=== PATIENT | male | born 1955 | race Caucasian/White ===

== ENCOUNTER 2022-09-03 13:11 | Outpatient (REF) | payer OTHER, SELFPAY ==
[2022-09-03 16:56] LABS: Alanine Aminotransferase 15 U/L (0-40); Alkaline Phosphatase 79 U/L (39-117); Anion Gap 11 (12-20); Aspartate Amino Transferase 17 U/L (5-37); Bilirubin Total 1.7 mg/dL (0.0-1.0); Blood Urea Nitrogen 8 mg/dL (9-16); Calcium 9.3 mg/dL (8.4-10.2); Carbon Dioxide 26 mmol/L (22-29); Chloride 106 mmol/L (96-108); Cholesterol 153 mg/dL; Estimated Glomerular Filt Rate > 60; Glucose Fasting 95 mg/dL (60-99); HDL Cholesterol 45 mg/dL; LDL Cholesterol Calculated 101 mg/dl; Potassium 3.9 mmol/L (3.3-5.1); Sodium 139 mmol/L (135-145); Total Protein 6.6 g/dL (6.5-8.0); Triglycerides 39 mg/dL
[2022-09-03 16:58] LABS: Estimated Average Glucose 103 mg/dL; Hemoglobin A1c % 5.2 %
[2022-09-03 17:17] LABS: Prostate Specific Antigen 1.91 ng/mL (<0.05-4.0)
[2022-09-04 05:02] LABS: ~HepC Num1 0.08 S/CO (0.00-0.79); ~Hepatitis C Antibody Nonreactive (Nonreactive)
[2022-09-04 05:03] LABS: HBS Num1 > 1000.00 mIU/mL (0-7.99); HBsAGNum1 0.33 S/CO (0.00-0.99); HIV AB/AG Nonreactive (Nonreactive); HIV Num 1 0.06 S/CO (0.00-0.99); Hepatitis B Core Antibody Nonreactive (Nonreactive); Hepatitis B Surface Antigen Negative (Negative); ~Hepatitis B Surface Antibody REACTIVE (Nonreactive)
[2022-09-04 12:07] LABS: Syphilis Screen Nonreactive (Nonreactive)
== END 2022-09-03 13:12 | disposition home or self-care (01) ==
LOC: HO.HHCL 13:11
PROVIDERS: Visit Provider Nurse Practitioner Primary Care
DX: Z00.00 Encounter for general adult medical examination without abnormal findings (principal); Z12.5 Encounter for screening for malignant neoplasm of prostate; Z11.4 Encounter for screening for human immunodeficiency virus [HIV]
CPT/HCPCS: 36415; 80053; 80061; 83036; 84153; 86704; 86706; 86780; 86803; 87340; 87389

== ENCOUNTER 2023-12-03 07:25 | Day surgery (SDC) | payer OTHER, SELFPAY ==
[2023-12-01 08:46] VITALS: BMI 26.9
--- NOTE | 2023-12-01 14:32 | HO.ANESPROP2 ---
Documented by User: Diane Kendall NP 12/01/23 14:32 HPI - Anesthesia Eval Consult details Narrative: 68yo M for Colonoscopy PMFSH Past Medical History Medical History Coma Substance abuse Seizures Surgical History Surgical History History of surgery H/O colonoscopy Social History Social History Patient Tobacco Use Status: Former Tobacco user Tobacco use type: Cigarette Use of substances other than those prescribed or required for medical reasons: No Substance Use Type: Crack/Cocaine, Former Substance User and Marijuana Are you DNR?: No Advance Directives: No Advance Directives Information Provided: Yes Recently lost weight without trying: No Nutrition Risks: No Nutritional Risk Poor oral hygiene: No Meds Allergies Allergy/AdvReac Type Severity Reaction Status Date / Time No Known Allergies Allergy Verified 12/01/23 08:44 Home Medications ?Medication ?Instructions ?Recorded ?Confirmed ?Last Taken ?Type levetiracetam 500 mg tablet 500 mg PO BID 12/01/23 12/01/23 Unknown History (Zenaida) thiamine HCl (vitamin B1) 12/03/23 12/03/23 Unknown History Exam Height,Weight and Vital Signs: Height 6 ft Weight 89.811 kg Assessment and Plan Assessment Anesthesia Assessment: Chart Reviewed Documented by User: Gladis Simon MD 12/03/23 08:45 PMFSH Past Medical History Medical History Coma Substance abuse Seizures Family History Family history of problems with anesthesia: No Surgical History Surgical History History of surgery H/O colonoscopy History of Problems with Anesthesia: No Social History Social History Patient Tobacco Use Status: Former Tobacco user Tobacco use type: Cigarette Use of substances other than those prescribed or required for medical reasons: No Substance Use Type: Crack/Cocaine, Former Substance User and Marijuana Are you DNR?: No Advance Directives: No Advance Directives Information Provided: Yes Recently lost weight without trying: No Nutrition Risks: No Nutritional Risk Poor oral hygiene: No Meds Allergies Allergy/AdvReac Type Severity Reaction Status Date / Time No Known Allergies Allergy Verified 12/01/23 08:44 Home Medications ?Medication ?Instructions ?Recorded ?Confirmed ?Last Taken ?Type levetiracetam 500 mg tablet 500 mg PO BID 12/01/23 12/01/23 Unknown History (Kemodesto) thiamine HCl (vitamin B1) 12/03/23 12/03/23 Unknown History Exam Airway Mallampati Class: II TM Dist: >3cm Neck ROM: Full Heart: rrr Lungs: cta Assessment and Plan Assessment Anesthesia Assessment: Anesthesia Plan Discussed Final Anesthetic Review Family History of Problems with Anesthesia: No History of Problems with Anesthesia: No NPO: Yes ASA Class: III Final Preanesthetic Review: No Changes in Pt Med Stat, Meds/Allgs Chart Reviewed, Consent Obtained/Reviewed and Anes Risks/Benef Reviewed Patient Risk: Intermediate Procedure Risk: Low Anesthetic Plan Anesthetic Plan: MAC: (complaining of some chest discomfort early am, none now, was non radiating left side, will get ekg) Disposition: Standard PACU
[2023-12-03 08:10] VITALS: BMI 26.8
--- NOTE | 2023-12-03 08:25 | ECG_ITS ---
Test Reason : chest wall pain Blood Pressure : / mmHG Vent. Rate : 062 BPM Atrial Rate : 062 BPM P-R Int : 176 ms QRS Dur : 084 ms QT Int : 376 ms P-R-T Axes : 072 027 062 degrees QTc Int : 381 ms Normal sinus rhythm with sinus arrhythmia Normal ECG No previous ECGs available Referred By: Gladis Simon Electronically Signed By:PATT ANDRES MD
[2023-12-03 08:29] VITALS: BP 112/72; PULSE 75; RESP 16; TEMP 36.8; O2SAT 95
--- NOTE | 2023-12-03 08:30 | PC.NURSE ---
ekg being performed
[2023-12-03] MEDS: Lactated Ringers 1,000 ML 100 ML IVCONT (08:37)
--- NOTE | 2023-12-03 08:52 | P.HPSUR_ITS ---
Pre-Procedural Eval Section A - 24 Hr Update-Section A only Date of Service: 12/03/23 Section B - Complete if H&P > 30 days Chief Complaint: Encounter for screening for malignant neoplasm of Details of Present Illness: see H&P no changes Relevant Family History (Specify if Yes): No Relevant Social History: None Present Medications: see Short Stay Collaborative assessment Medical History: No relevant PMH History of Previous Operations: No relevant previous surgery Allergies: Allergies Allergy/AdvReac Type Severity Reaction Status Date / Time No Known Allergies Allergy Verified 12/01/23 08:44 Review of Systems Sugical H&P ROS: Negative: Constitution, Cardiovascular, Respiratory, Neurological, Psychiatric, Hem-Onc, Allergic/Immunologic, Gastrointestinal, Genitourinary, Musculoskeletal, Integumentary, Endocrine and Eyes/Ears/No se/Throat Exam Surgical H&P Exam: Normal: HEENT, Normal: Heart, Normal: Lungs, Normal: Extremities, Normal: Abdomen, Normal: Skin and Normal: Neurological Plan Diagnosis/Plan: Unchanged I have reviewed the history and physical and performed a pertinent physical examination on my patient. No changes have occurred unless specified. Time Spent With Patient Time: Total time managing care of this patient today ____ minutes.
[2023-12-03 10:08] VITALS: BP 90/52; PULSE 69; RESP 16; TEMP 36.2; O2SAT 98
[2023-12-03 10:28] VITALS: BP 101/64; PULSE 60; RESP 17; TEMP 36.1; O2SAT 98
--- NOTE | 2023-12-03 11:07 | OP_ITS ---
DATE OF SERVICE: 12/03/2023 SURGEON: Cain Wise MD INDICATIONS: Colon cancer screening. PREOPERATIVE DIAGNOSIS: POSTOPERATIVE DIAGNOSIS: PROCEDURE PERFORMED: Colonoscopy to the terminal ileum with biopsy and snare polypectomy. ESTIMATED BLOOD LOSS: COMPLICATIONS: ANESTHESIA: MAC ASSISTANTS: SPECIMENS: DESCRIPTION OF PROCEDURE: A history and physical was performed. The risks and benefits of the procedure were explained to the patient, and informed consent was obtained. The patient was placed in the left lateral decubitus position. A digital rectal exam was performed and was found to be normal. The Olympus pediatric video colonoscope was introduced into the rectum and advanced to the cecum. The cecum was identified by transillumination, palpation, and identification of ileocecal valve. Examination was performed. The scope was removed. He tolerated the procedure well and was returned to the recovery area in stable condition. FINDINGS: The terminal ileum was examined and appeared normal. The visualized colonic mucosa was normal. Multiple polyps were present. All measuring less than 10 mm. The 1st at 90 cm was removed with a biopsy forceps. Three other polyps at 70, 60, and 40 cm were removed with a cold snare. There was mild sigmoid diverticulosis with scattered diverticula throughout the colon. Retroflexed examination showed moderate-sized internal hemorrhoids. IMPRESSION: Colon polyps. RECOMMENDATION: Follow up the biopsy results. MD AGUILA Santos/VERN / [id number] MTDD
== END 2023-12-03 10:59 | disposition home or self-care (01) ==
PROVIDERS: Visit Provider Internal Medicine Gastroenterology
PROC: 0DJD8ZZ Inspection of Lower Intestinal Tract, Via Natural or Artificial Opening Endoscopic (ICD-10-PCS; CPT 45378; principal; 2023-12-03 09:20)
DX: Z12.11 Encounter for screening for malignant neoplasm of colon (principal); D12.3 Benign neoplasm of transverse colon; D12.4 Benign neoplasm of descending colon; D12.5 Benign neoplasm of sigmoid colon; K57.30 Diverticulosis of large intestine without perforation or abscess without bleeding; K64.8 Other hemorrhoids; R07.89 Other chest pain; G40.909 Epilepsy, unspecified, not intractable, without status epilepticus; Z87.891 Personal history of nicotine dependence; Z79.899 Other long term (current) drug therapy
CPT/HCPCS: 45385; 45380; 88305; 93005; J2003; J2704

== ENCOUNTER → 2023-12-03 08:25 | Outpatient (BNV) | payer OTHER, SELFPAY | PROVIDERS: Visit Provider Internal Medicine Cardiovascular Disease | DX: R07.89 Other chest pain (principal) | CPT/HCPCS: 93010 ==

== ENCOUNTER 2024-03-23 15:10 | Outpatient (REF) | payer MEDICARE, SELFPAY ==
--- NOTE | ~2024-03-23 | US_ITS ---
CLINICAL HISTORY: enlarged LNs Limited soft tissue ultrasound in the submandibular region bilaterally Indication: Enlarged lymph nodes Comparison: None. Findings: A few small lymph nodes are present bilaterally. None of these meet size criteria for pathologic enlargement. On the right, there is a 2.3 x 0.4 x 1.6 cm lymph node. On the left there is a 1.6 x 0.6 x 1.1 cm and 1.4 x 0.5 x 0.6 cm lymph node. Impression: Small lymph nodes not meeting size criteria for pathologic enlargement. This document has been electronically signed by: Clinton Dowell MD on 03/24/2024 11:28:07
--- OUTSIDE RECORDS SUMMARY | 2024-03-23 18:58 | XMS_ITS | Continuity of Care Document ---
Author Name [facility] Organization [facility] Care Team Providers Care Shoe Ironer Name Role Phone [facility] Unavailable Unavailable Problems Combined list of problems from Department of Defense and Veterans Affairs facilities. It does not include entries that were removed or entered in error. 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 Condition [facility] Osteoarthritis of knee Active Condition [facility] Other and unspecified alcohol dependence, continuous drinking behavior (ICD-9-CM Active Condition [facility] 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 Condition [facility] Posttraumatic seizure Active Condition [facility] Traumatic rupture of biceps tendon Active Condition Dec 05, 2013 Entered By: Akiko HODGES MY P Comment: partial tear right [facility] 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 Condition [facility] Diagnosis: ICD-10-CM R56.1 Post traumatic seizures Active Diagnosis [facility] Diagnosis: ICD-10-CM Z46.0 Encounter for fit/adjst of spectacles and contact lenses Active Diagnosis [facility] Diagnosis: ICD-10-CM H40.013 Open angle with borderline findings, low risk, bilateral Active Diagnosis [facility] Medications Combined list of outpatient medications from Department of Defense and Veterans Affairs facilities.Medications provided include 1) outpatient medications from the last 15 months, and 2) patient-reported medications. Medication Details Route Status Patient Instructions Prescription Expires Prescription Number Last Dispense Date Ordering Provider Order Date Order Qty Source LEVETIRACET AM 500MG TAB TAKE ONE TABLET BY MOUTH ONCE DAILY FOR TONIC-CL ONIC EPILEPSY ORAL ACTIVE 10/28/2024 [id number] SANDRINEMARITZA GONZALEZ 2023 120 [facility] [place] [facility] LEVETIRACET AM 500MG TAB TAKE TWO TABLETS BY MOUTH ONCE DAILY ORAL 07/08/2023 [id number] SOLE AYALA 2022 240 [facility] [place] [facility] THIAMINE 100MG TAB TAKE ONE TABLET BY MOUTH ONCE DAILY FOR VITAMIN SUPPLEME NTATION ORAL ACTIVE 10/28/2024 [id number] LAURAMARITZA Fleming 2023 100 [facility] [place] [facility] THIAMINE 50MG TAB TAKE ONE TABLET BY MOUTH ONCE DAILY ORAL ACTIVE MILTONDIAMONDMARITZA WHITTEN 2021 [facility] Immunizations Combined list of available immunizations from the Department of Defense and Veterans Affairs facilities. Immunization Series Date Given Administered By Site Reaction Lot Number CVX Code Drug Labor Training Manager Status Comments Source INFLUENZA, UNSPECIFIED FORMULATION 2023 88 complet ed [facility] [place] [facility] INFLUENZA, UNSPECIFIED FORMULATION 2022 88 complet ed [facility] [place] [facility] PNEUMOCOCCAL CONJUGATE PCV20, POLYSACCHARID E [id number] CONJUGATE, ADJUVANT, PF 2022 JEAN-PIERRE MORAN RIGHT DELTO ID [id number] 216 complet ed [facility] [place] [facility] COVID-19 (MODERNA), MRNA, LNP-S, BIVALENT BOOSTER, PF, 50 MCG/0.5 ML OR 25MCG/0.25 ML DOSE 1 2022 KOKO SHEPHERD LEFT DELTO ID [id number] 229 complet ed [facility] INFLUENZA, INJECTABLE, QUADRIVALENT, PRESERVATIVE FREE 2021 DAVI SUTHERLAND RIGHT DELTO ID [id number] 150 complet ed [facility] COVID-19 (PFIZER), MRNA, LNP-S, PF, 30 MCG/0.3 ML DOSE 3 2021 208 complet ed [facility] COVID-19 (PFIZER), MRNA, LNP-S, PF, 30 MCG/0.3 ML DOSE 3 2021 208 complet ed [facility] INFLUENZA, INJECTABLE, QUADRIVALENT, PRESERVATIVE FREE 2020 150 complet ed [facility] TD (ADULT), 5 LF TETANUS TOXOID, PRESERVATIVE FREE, ADSORBED 2020 113 complet ed [facility] COVID-19 (PFIZER), MRNA, LNP-S, PF, 30 MCG/0.3 ML DOSE 2 2020 208 complet ed PFR; [id number]; 1 [facility] COVID-19 (PFIZER), MRNA, LNP-S, PF, 30 MCG/0.3 ML DOSE 1 2020 208 complet ed PFR; [id number]; 1 [facility] INFLUENZA, INJECTABLE, QUADRIVALENT, PRESERVATIVE FREE 2019 150 complet ed Site: Left Deltoid [facility] ZOSTER RECOMBINANT 2 2019 187 complet ed [facility] INFLUENZA, INJECTABLE, QUADRIVALENT, PRESERVATIVE FREE 2018 150 complet ed Site: Left Deltoid [facility] ZOSTER RECOMBINANT 1 2018 187 complet ed [facility] HEP A-HEP B 1 2018 NONE 104 complet ed tolerated well [facility] INFLUENZA, SEASONAL, INJECTABLE 2017 141 complet ed Site: Left Deltoid [facility] INFLUENZA, SEASONAL, INJECTABLE 2016 141 complet ed Site: Left Deltoid [facility] DTAP, UNSPECIFIED FORMULATION 2011 107 complet ed Site: Left Deltoid [facility] PNEUMOCOCCAL, UNSPECIFIED FORMULATION 2011 109 complet ed Site: Right Deltoid [facility] TD(ADULT) UNSPECIFIED FORMULATION 2006 JASSI BETTENCOURT J 139 complet ed [facility] TD(ADULT) UNSPECIFIED FORMULATION 2000 JOHN ROSENBAUM P 139 complet ed [facility] Results Combined list of recent chemistry, hematology and other laboratory results from Department of Defense and Veterans Affairs, ranging from 15 months to all on record, depending upon the facility. Order Name Results Value Reference Range Date Interpretation Specimen Comments Source BASIC METABOLIC PANEL (fasting) UREA NITROGEN [MASS/VOLUM E] IN SERUM OR PLASMA 12 mg/dL 7 - 25 03/15 Specimen Type: SERUM No comment entered. Ordering Provider: Santana SANCHEZ Report Released Date/Time: Mar 12, 2023 04:00 PM Reporting Lab: [facility] [place] [facility] [address] [facility] [address] Performing Lab: [facility] [place] [facility] [address] [facility] [address] [place] [facility] [place] [facility] BASIC METABOLIC PANEL (fasting) GLUCOSE [MASS/VOLUM E] IN SERUM OR PLASMA 108 mg/dL 65 - 100 03/15 H Specimen Type: SERUM No comment entered. Ordering Provider: Santana SANCHEZ Report Released Date/Time: Mar 12, 2023 04:00 PM Reporting Lab: [facility] [place] [facility] [address] [facility] [address] Performing Lab: [facility] [place] [facility] [address] [facility] [address] [facility] BASIC METABOLIC PANEL (fasting) SODIUM [MOLES/VOLU ME] IN SERUM OR PLASMA 138 mmol/L 135 - 145 03/15 Specimen Type: SERUM No comment entered. Ordering Provider: Santana SANCHEZ Report Released Date/Time: Mar 12, 2023 04:00 PM Reporting Lab: [facility] [place] [facility] [address] [facility] [address] Performing Lab: [facility] [place] [facility] [address] [facility] [address] [facility] [place] [facility] BASIC METABOLIC PANEL (fasting) POTASSIUM [MOLES/VOLU ME] IN SERUM OR PLASMA 4.9 mmol/L 3.5 - 5.0 03/15 Specimen Type: SERUM No comment entered. Ordering Provider: Santana SANCHEZ Report Released Date/Time: Mar 12, 2023 04:00 PM Reporting Lab: [facility] [place] [address] [address] Performing Lab: [facility] [place] [address] [address] [facility] [place] [facility] BASIC METABOLIC PANEL (fasting) CHLORIDE [MOLES/VOLU ME] IN SERUM OR PLASMA 104 mmol/L 100 - 110 03/15 Specimen Type: SERUM No comment entered. Ordering Provider: Santana SANCHEZ Report Released Date/Time: Mar 12, 2023 04:00 PM Reporting Lab: [facility] [place] [facility] [address] [facility] [address] Performing Lab: [facility] [place] [address] [address] [facility] [place] [facility] BASIC METABOLIC PANEL (fasting) CARBON DIOXIDE, TOTAL [MOLES/VOLU ME] IN SERUM OR PLASMA 27 meq/L 20 - 30 03/15 Specimen Type: SERUM No comment entered. Ordering Provider: Santana SANCHEZ Report Released Date/Time: Mar 12, 2023 04:00 PM Reporting Lab: [facility] [address] [facility] [address] Performing Lab: [facility] [address] [address] [facility] BASIC METABOLIC PANEL (fasting) CREATININE [MASS/VOLUM E] IN SERUM OR PLASMA 0.90 mg/dL 0.50 - 1.40 03/15 Specimen Type: SERUM No comment entered. Ordering Provider: Santana SANCHEZ Report Released Date/Time: Mar 12, 2023 04:00 PM Reporting Lab: [facility] [address] [address] Performing Lab: [facility] [address] [address] [facility] BASIC METABOLIC PANEL (fasting) GLOMERULAR FILTRATION RATE/1.73 SQ M.PREDICTED [VOLUME RATE/AREA] IN SERUM, PLASMA OR BLOOD BY CREATININE- BASED FORMULA (CKD-EPI 2020) >90mL/ min 60 03/15 Specimen Type: SERUM No comment entered. Ordering Provider: Santana SANCHEZ Report Released Date/Time: Mar 12, 2023 04:00 PM Reporting Lab: [facility] [address] [address] Performing Lab: [facility] [address] [address] [facility] HEMOGLOBI N A1C PANEL HEMOGLOBIN A1C/HEMOGLO BIN.TOTAL IN BLOOD BY HPLC 5.3 4.0 - 5.6 03/15 Specimen Type: BLOOD Comment: Values obtained from A1C measurement s can vary. For atypical A1C assays, a reported value of 7.0 could actually be between 6.72 and 7.28 if measured by a reference method. A reported value of 9.0 could actually be between 8.73 and 9.27. Ref: http://www. ngsp.org/[place] Pdata.asp Ordering Provider: Santana SANCHEZ Report Released Date/Time: Mar 12, 2023 04:00 PM Reporting Lab: [facility] [address] [facility] [address] Performing Lab: [facility] [place] [facility] [address] [facility] [address] [facility] [place] [facility] LIPID PANEL FASTING CHOLESTEROL [MASS/VOLUM E] IN SERUM OR PLASMA 161 mg/dL 03/15 Specimen Type: SERUM No comment entered. Ordering Provider: Santana SANCHEZ Report Released Date/Time: Mar 12, 2023 04:00 PM Reporting Lab: [facility] [place] [facility] [address] [facility] [address] Performing Lab: [facility] [place] [facility] [address] [facility] [address] [facility] [place] [facility] LIPID PANEL FASTING TRIGLYCERID E [MASS/VOLUM E] IN SERUM OR PLASMA 48 mg/dL 0 - 150 03/15 Specimen Type: SERUM No comment entered. Ordering Provider: Santana SANCHEZ Report Released Date/Time: Mar 12, 2023 04:00 PM Reporting Lab: [facility] [place] [facility] [address] [facility] [address] Performing Lab: [facility] [place] [facility] [address] [facility] [address] [facility] LIPID PANEL FASTING CHOLESTEROL IN LDL [MASS/VOLUM E] IN SERUM OR PLASMA BY CALCULATION 99 mg/dL 0 - 129 03/15 Specimen Type: SERUM No comment entered. Ordering Provider: Santana SANCHEZ Report Released Date/Time: Mar 12, 2023 04:00 PM Reporting Lab: [facility] [place] [facility] [address] [facility] [address] Performing Lab: [facility] [place] [facility] [address] [facility] [address] [facility] [place] [facility] LIPID PANEL FASTING CHOLESTEROL .TOTAL/CHOL ESTEROL IN HDL [MASS RATIO] IN SERUM OR PLASMA 3.1 03/15 Specimen Type: SERUM No comment entered. Ordering Provider: Santana SANCHEZ Report Released Date/Time: Mar 12, 2023 04:00 PM Reporting Lab: [facility] [place] [facility] [address] [facility] [address] Performing Lab: [facility] [place] [facility] [address] [facility] [address] [facility] [facility] LIPID PANEL FASTING CHOLESTEROL IN HDL [MASS/VOLUM E] IN SERUM OR PLASMA 52 mg/dL 40 - 60 03/15 Specimen Type: SERUM No comment entered. Ordering Provider: Santana SANCHEZ Report Released Date/Time: Mar 12, 2023 04:00 PM Reporting Lab: [facility] [place] [facility] [address] [facility] [address] Performing Lab: [facility] [place] [facility] [address] [facility] [address] [place] [facility] [place] [facility] LIVER FUNCTION PROTEIN [MASS/VOLUM E] IN SERUM OR PLASMA 7.0 g/dL 6.0 - 8.3 03/15 Specimen Type: SERUM No comment entered. Ordering Provider: Santana SANCHEZ Report Released Date/Time: Mar 12, 2023 04:00 PM Reporting Lab: [facility] [place] [facility] [address] [facility] [address] Performing Lab: [facility] [place] [facility] [address] [facility] [address] [place] [facility] [place] [facility] LIVER FUNCTION ALBUMIN [MASS/VOLUM E] IN SERUM OR PLASMA 4.1 g/dL 3.5 - 5.0 03/15 Specimen Type: SERUM No comment entered. Ordering Provider: Santana SANCHEZ Report Released Date/Time: Mar 12, 2023 04:00 PM Reporting Lab: [facility] [place] [facility] [address] [facility] [address] Performing Lab: [facility] [place] [facility] [address] [facility] [address] [facility] [place] [facility] LIVER FUNCTION ALKALINE PHOSPHATASE [ENZYMATIC ACTIVITY/VO LUME] IN SERUM OR PLASMA 93 U/L 40 - 150 03/15 Specimen Type: SERUM No comment entered. Ordering Provider: Santana SANCHEZ Report Released Date/Time: Mar 12, 2023 04:00 PM Reporting Lab: [facility] [place] [facility] [address] [facility] [address] Performing Lab: [facility] [place] [facility] [address] [facility] [address] [facility] [place] [facility] LIVER FUNCTION ASPARTATE AMINOTRANSF ERASE [ENZYMATIC ACTIVITY/VO LUME] IN SERUM OR PLASMA 14 U/L 5 - 34 03/15 Specimen Type: SERUM No comment entered. Ordering Provider: Santana SANCHEZ Report Released Date/Time: Mar 12, 2023 04:00 PM Reporting Lab: [facility] [place] [facility] [address] [facility] [address] Performing Lab: [facility] [place] [facility] [address] [facility] [address] [facility] [place] [facility] LIVER FUNCTION ALANINE AMINOTRANSF ERASE [ENZYMATIC ACTIVITY/VO LUME] IN SERUM OR PLASMA 13 U/L 03/15 Specimen Type: SERUM No comment entered. Ordering Provider: Santana SANCHEZ Report Released Date/Time: Mar 12, 2023 04:00 PM Reporting Lab: [facility] [place] [address] [address] Performing Lab: [facility] [place] [facility] [address] [facility] [address] [facility] [place] [facility] LIVER FUNCTION BILIRUBIN.T OTAL [MASS/VOLUM E] IN SERUM OR PLASMA 1.4 mg/dL 0.2 - 1.2 03/15 H Specimen Type: SERUM No comment entered. Ordering Provider: Santana SANCHEZ Report Released Date/Time: Mar 12, 2023 04:00 PM Reporting Lab: [facility] [place] [address] [address] Performing Lab: [facility] [place] [address] [address] [facility] LIVER FUNCTION BILIRUBIN.D IRECT [MASS/VOLUM E] IN SERUM OR PLASMA 0.5 mg/dL 0 - 0.5 03/15 Specimen Type: SERUM No comment entered. Ordering Provider: Santana SANCHEZ Report Released Date/Time: Mar 12, 2023 04:00 PM Reporting Lab: [address] [address] Performing Lab: [facility] [address] [facility] [address] [facility] VITAMIN B-1 (THIAMINE )-(QU) THIAMINE [MOLES/VOLU ME] IN SERUM OR PLASMA 9 nmol/L 8 - 30 03/15 Specimen Type: PLASMA Comment: Vitamin supplementa tion within 24 hours prior to blood draw may affect the accuracy of the results. This test was developed and its analytical performance characteris tics have been determined by [employer] [place], [place]. It has not been cleared or approved by the U.S. Food and Drug Administrat ion. This assay has been validated pursuant to the CLIA regulations and is used for clinical purposes. Test Performed by [facility], [facility], [address] [place] [address] Danny Waggoner M.D., Ph.D., Director of Laboratorie s , CLIA [id number] TEST PERFORMED AT: , Ordering Provider: Santana SANCHEZ Report Released Date/Time: Mar 12, 2023 04:00 PM Reporting Lab: [address] [address] Performing Lab: [place] [id number] BASIC METABOLIC PANEL (fasting) UREA NITROGEN [MASS/VOLUM E] IN SERUM OR PLASMA 13 mg/dL 7 - 25 09/18 Specimen Type: SERUM No comment entered. Ordering Provider: VANWAGNER,W ILLIAM F Report Released Date/Time: Mar 20, 2022 02:25 PM Reporting Lab: [facility] [place] [facility] [address] [facility] [address] Performing Lab: [facility] [place] [facility] [address] [facility] [address] [facility] [place] [facility] BASIC METABOLIC PANEL (fasting) GLUCOSE [MASS/VOLUM E] IN SERUM OR PLASMA 140 mg/dL 65 - 100 09/18 H Specimen Type: SERUM No comment entered. Ordering Provider: Santana SANCHEZ Report Released Date/Time: Mar 20, 2022 02:25 PM Reporting Lab: [facility] [place] [facility] [address] [facility] [address] Performing Lab: [place] [facility] [place] [place] [facility] [address] [facility] [address] [place] [facility] [place] [facility] BASIC METABOLIC PANEL (fasting) SODIUM [MOLES/VOLU ME] IN SERUM OR PLASMA 136 mmol/L 135 - 145 09/18 Specimen Type: SERUM No comment entered. Ordering Provider: Santana SANCHEZ Report Released Date/Time: Mar 20, 2022 02:25 PM Reporting Lab: [facility] [place] [facility] [address] [facility] [address] Performing Lab: [facility] [place] [facility] [address] [facility] [address] [place] [facility] [place] [place] [facility] BASIC METABOLIC PANEL (fasting) POTASSIUM [MOLES/VOLU ME] IN SERUM OR PLASMA 4.2 mmol/L 3.5 - 5.0 09/18 Specimen Type: SERUM No comment entered. Ordering Provider: Santana SANCHEZ Report Released Date/Time: Mar 20, 2022 02:25 PM Reporting Lab: [facility] [place] [facility] [address] [facility] [address] Performing Lab: [facility] [place] [facility] [address] [facility] [address] [facility] [place] [facility] BASIC METABOLIC PANEL (fasting) CHLORIDE [MOLES/VOLU ME] IN SERUM OR PLASMA 102 mmol/L 100 - 110 09/18 Specimen Type: SERUM No comment entered. Ordering Provider: Santana SANCHEZ Report Released Date/Time: Mar 20, 2022 02:25 PM Reporting Lab: [facility] [address] Performing Lab: [facility] [address] [facility] BASIC METABOLIC PANEL (fasting) CARBON DIOXIDE, TOTAL [MOLES/VOLU ME] IN SERUM OR PLASMA 26 meq/L 20 - 30 09/18 Specimen Type: SERUM No comment entered. Ordering Provider: Santana SANCHEZ Report Released Date/Time: Mar 20, 2022 02:25 PM Reporting Lab: [facility] [address] [address] Performing Lab: [facility] [address] [address] [facility] BASIC METABOLIC PANEL (fasting) CREATININE [MASS/VOLUM E] IN SERUM OR PLASMA 0.86 mg/dL 0.50 - 1.40 09/18 Specimen Type: SERUM No comment entered. Ordering Provider: Santana SANCHEZ Report Released Date/Time: Mar 20, 2022 02:25 PM Reporting Lab: [facility] [address] Performing Lab: [facility] [address] [facility] BASIC METABOLIC PANEL (fasting) GLOMERULAR FILTRATION RATE/1.73 SQ M.PREDICTED [VOLUME RATE/AREA] IN SERUM, PLASMA OR BLOOD BY CREATININE- BASED FORMULA (CKD-EPI) >90mL/ min 60 09/18 Specimen Type: SERUM No comment entered. Ordering Provider: Santana SANCHEZ Report Released Date/Time: Mar 20, 2022 02:25 PM Reporting Lab: [facility] [place] [place] [address] Performing Lab: [place] [facility] [place] [facility] [address] [facility] [address] [facility] [place] [facility] LIPID PANEL FASTING CHOLESTEROL [MASS/VOLUM E] IN SERUM OR PLASMA 130 mg/dL 09/18 Specimen Type: SERUM No comment entered. Ordering Provider: Santana SANCHEZ Report Released Date/Time: Mar 20, 2022 02:25 PM Reporting Lab: [facility] [place] [facility] [address] [facility] [address] Performing Lab: [place] [facility] [place] [facility] [address] [facility] [address] [place] [facility] [place] [facility] LIPID PANEL FASTING TRIGLYCERID E [MASS/VOLUM E] IN SERUM OR PLASMA 54 mg/dL 0 - 150 09/18 Specimen Type: SERUM No comment entered. Ordering Provider: Santana SANCHEZ Report Released Date/Time: Mar 20, 2022 02:25 PM Reporting Lab: [facility] [place] [facility] [address] [facility] [address] Performing Lab: [facility] [place] [facility] [address] [facility] [phone] [facility] [place] [facility] LIPID PANEL FASTING CHOLESTEROL IN LDL [MASS/VOLUM E] IN SERUM OR PLASMA BY CALCULATION 80 mg/dL 0 - 129 09/18 Specimen Type: SERUM No comment entered. Ordering Provider: Santana SANCHEZ Report Released Date/Time: Mar 20, 2022 02:25 PM Reporting Lab: [facility] [place] [facility] [address] [facility] [address] Performing Lab: [facility] [place] [facility] [address] [facility] [address] [place] [facility] [place] [facility] LIPID PANEL FASTING CHOLESTEROL .TOTAL/CHOL ESTEROL IN HDL [MASS RATIO] IN SERUM OR PLASMA 3.3 09/18 Specimen Type: SERUM No comment entered. Ordering Provider: Santana SANCHEZ Report Released Date/Time: Mar 20, 2022 02:25 PM Reporting Lab: [facility] [place] [facility] [address] [facility] [address] Performing Lab: [facility] [place] [facility] [address] [facility] [address] [facility] [place] [facility] LIPID PANEL FASTING CHOLESTEROL IN HDL [MASS/VOLUM E] IN SERUM OR PLASMA 39 mg/dL 40 - 60 09/18 L Specimen Type: SERUM No comment entered. Ordering Provider: Santana SANCHEZ Report Released Date/Time: Mar 20, 2022 02:25 PM Reporting Lab: [facility] [place] [facility] [address] [facility] [address] Performing Lab: [facility] [place] [facility] [address] [facility] [address] [facility] [place] [facility] LIVER FUNCTION PROTEIN [MASS/VOLUM E] IN SERUM OR PLASMA 6.6 g/dL 6.0 - 8.3 09/18 Specimen Type: SERUM No comment entered. Ordering Provider: Santana SANCHEZ Report Released Date/Time: Mar 20, 2022 02:25 PM Reporting Lab: [facility] [place] [facility] [address] [facility] [address] Performing Lab: [facility] [place] [facility] [address] [facility] [address] [facility] [place] [facility] LIVER FUNCTION ALBUMIN [MASS/VOLUM E] IN SERUM OR PLASMA 3.9 g/dL 3.5 - 5.0 09/18 Specimen Type: SERUM No comment entered. Ordering Provider: Santana SANCHEZ Report Released Date/Time: Mar 20, 2022 02:25 PM Reporting Lab: [facility] [place] [facility] [address] [facility] [address] Performing Lab: [facility] [place] [facility] [address] [facility] [address] [facility] [place] [facility] LIVER FUNCTION ALKALINE PHOSPHATASE [ENZYMATIC ACTIVITY/VO LUME] IN SERUM OR PLASMA 80 U/L 40 - 150 09/18 Specimen Type: SERUM No comment entered. Ordering Provider: Santana SANCHEZ Report Released Date/Time: Mar 20, 2022 02:25 PM Reporting Lab: [facility] [place] [facility] [address] [facility] [address] Performing Lab: [facility] [place] [facility] [address] [facility] [address] [facility] [place] [facility] LIVER FUNCTION ASPARTATE AMINOTRANSF ERASE [ENZYMATIC ACTIVITY/VO LUME] IN SERUM OR PLASMA 11 U/L 5 - 34 09/18 Specimen Type: SERUM No comment entered. Ordering Provider: Santana SANCHEZ Report Released Date/Time: Mar 20, 2022 02:25 PM Reporting Lab: [facility] [place] [facility] [address] [facility] [address] Performing Lab: [facility] [place] [facility] [address] [facility] [address] [facility] [place] [facility] LIVER FUNCTION ALANINE AMINOTRANSF ERASE [ENZYMATIC ACTIVITY/VO LUME] IN SERUM OR PLASMA 10 U/L 09/18 Specimen Type: SERUM No comment entered. Ordering Provider: Santana SANCHEZ Report Released Date/Time: Mar 20, 2022 02:25 PM Reporting Lab: [facility] [place] [facility] [address] [facility] [address] Performing Lab: [facility] [place] [facility] [address] [facility] [address] [facility] [place] [facility] LIVER FUNCTION BILIRUBIN.T OTAL [MASS/VOLUM E] IN SERUM OR PLASMA 1.0 mg/dL 0.2 - 1.2 09/18 Specimen Type: SERUM No comment entered. Ordering Provider: Santana SANCHEZ Report Released Date/Time: Mar 20, 2022 02:25 PM Reporting Lab: [facility] [place] [facility] [address] [facility] [address] Performing Lab: [facility] [place] [facility] [address] [facility] [address] [facility] [place] [facility] VITAMIN B-1 (THIAMINE )-(QU) THIAMINE [MOLES/VOLU ME] IN SERUM OR PLASMA 7 nmol/L 8 - 30 09/18 L Specimen Type: PLASMA Comment: Vitamin supplementa tion within 24 hours prior to blood draw may affect the accuracy of the results. This test was developed and its analytical performance characteris tics have been determined by [employer] [place], [place]. It has not been cleared or approved by the U.S. Food and Drug Administrat ion. This assay has been validated pursuant to the CLIA regulations and is used for clinical purposes. Test Performed by [facility], [employer] [facility], [address] [address] [facility], [place], [place] Danny Waggoner M.D., Ph.D., Director of Laboratorie s , CLIA [id number] TEST PERFORMED AT: , Ordering Provider: Santana SANCHEZ Report Released Date/Time: Sep 18, 2022 01:44 PM Reporting Lab: [facility] [address] [facility] [address] Performing Lab: [facility] [address] [address] [facility] Vital Signs Combined list of inpatient and outpatient Vital Signs from Department of Defense and Veterans Affairs, ranging from 12 months to all on record, depending upon the facility. Vital Sign Value Date Comments Source SYSTOLIC BLOOD PRESSURE 122 10/28/19 24 10:52:38 [facility] DIASTOLIC BLOOD PRESSURE 72 024 10:52:38 [facility] PULSE OXIMETRY 96 10/28/2023 10:52:38 [place] [facility] [facility] WEIGHT 202 10/28/2023 10:52:38 [facility] BMI 28kg/m2 10/28/2023 10:52:38 [facility] [place] [facility] PAIN 0 10/28/2023 10:52:38 [facility] [place] [facility] TEMPERATURE 97.7 10/28/2023 10:52:38 [facility] [place] [facility] PULSE 48 10/28/2023 10:52:38 [facility] [place] [facility] RESPIRATION 16 10/28/2023 10:52:38 [facility] [place] [facility] SYSTOLIC BLOOD PRESSURE 118 04/30/19 24 11:22:11 [facility] [place] [facility] DIASTOLIC BLOOD PRESSURE 64 024 11:22:11 [facility] [place] [facility] PULSE OXIMETRY 97 04/30/2023 11:22:11 [facility] [place] [facility] WEIGHT 195 04/30/2023 11:22:11 [facility] [place] [facility] BMI 27kg/m2 04/30/2023 11:22:11 [facility] [place] [facility] PAIN 0 04/30/2023 11:22:11 [facility] [place] [facility] TEMPERATURE 97.1 04/30/2023 11:22:11 [facility] [place] [facility] PULSE 48 04/30/2023 11:22:11 [facility] [place] [facility] RESPIRATION 18 04/30/2023 11:22:11 [facility] [place] [facility] Encounters Combined list of: 1) Encounters from Department of Veterans Affairs facilities going back up to thelast 18 months. 2) Encounters from the Department of Defense facilities going back up to 280 months. Location Location Details Encounter Type Encounter Number Reason For Visit Attending Provider ADM Date DC Date Status Disposition Source [facility] Encounter [id number] 12/30 [facility] [place] [facility] EYE EXAM&TX ESTAB PT 1/>VST [id number] Diagnos is: ICD-10- CM H40.013 Open angle with borderl ine finding s, low risk, bilater al
JIMBO STEEL 02/03 [facility] [place] FIT SPECTACLES BIFOCAL [id number] Diagnos is: ICD-10- CM Z46.0 Encount er for fit/adj st of spectac les and contact lenses< br/> JIMBO STEEL E 02/04 [facility] Out[facility] Encounter [id number] 03/06 [facility] [place] En[facility] [id number] 03/09 [facility] [place] Encounter [id number] 03/16 [facility] Encounter [id number] 03/18 [facility] En[facility] [id number] 03/18 [facility] En[facility] [id number] 03/25 [facility] [place] RPR&REFITG SPECT XCP APHAKIA [id number] Diagnos is: ICD-10- CM Z46.0 Encount er for fit/adj st of spectac les and contact lenses< br/> ASHA DOSHI 04/02 [facility] Out[facility] En[facility] [id number] 04/29 [facility] OFFICE O/P EST LOW 20 MIN [id number] Diagnos is: ICD-10- CM R56.1 Post traumat ic seizure s
MARITZA SANCHEZ 04/29 [facility] En[facility] [id number] 10/19 [facility] Encounter [id number] 10/27 [facility] OFFICE O/P EST LOW 20 MIN [id number] Diagnos is: ICD-10- CM R56.1 Post traumat ic seizure s
MARITZA SANCHEZ 10/27 [facility] En[facility] [id number] 12/02 [facility] En[facility] [id number] 12/28 [facility] En[facility] [id number] 01/16 [facility] Encounter [id number] 01/16 [facility] En[facility] [id number] 02/02 [facility] Encounter [id number] 03/01 [facility] Social History Combined list of available smoking, tobacco, and other social history from Department of Defense and Veterans Affairs facilities. Social History Type Response Date Comment Source Tobacco smoking status [facility] NEVER USED 04/30/2023 [facility] [place] [facility] 01/08/2022 [facility] [place] [facility] History of tobacco use [place]-TOBAC[facility] NEVER USED 12/13/2020 [facility] [place] [facility] History of tobacco use [place]-TOBACCO NEVER USED 08/16/2018 [facility] [place] [facility] 11[facility]22/2017 [facility] [place] [facility] History of tobacco use QUIT TOBACCO USE > 7 YEARS AGO 12/02/2016 [facility] [place] [facility] History of tobacco use QUIT TOBACCO USE 1-7 YEARS AGO 04/16/2016 [facility] [place] [facility] History of tobacco use QUIT TOBACCO USE > 7 YEARS AGO 02/12/2015 smoked pipe and cigar quit in 1976 [facility] [place] [facility] History of tobacco use LIFETIME NON-SMOKER 07/31/2003 [facility] [place] [facility] History of tobacco use LIFETIME NON-TOBACCO USER 12/22/2001 [facility] Plan of Care List of future care activities from Department of Veterans Affairs facilities. Additional future care activities may be listed in the Assessment and Plan section. Date/Time Care Activity Care Activity Detail Facili ty 04/25/2024 AMBULATORY - MEDICINE AMBULATORY - [facility] 04/26/2024 Laboratory - Writing Tutor ry Order VITAMIN B-1 (THIAMINE)-(QU) BLOOD (LAV-PLASMA) [facility] 04/26/2024 Laboratory - Writing Tutor ry Order LIVER FUNCTION BLOOD (SST-SERUM) SP [facility] 04/26/2024 Laboratory - Writing Tutor ry Order BASIC METABOLIC PANEL (fasting) BLOOD (SST-SERUM) SP [facility] 04/26/2024 Laboratory - Writing Tutor ry Order LIPID PANEL FASTING BLOOD (SST-SERUM) SP [facility]
--- OUTSIDE RECORDS SUMMARY | 2024-03-23 18:58 | XMS_ITS | Clinical Summary ---
Author Organization [employer] Address [address] [place] [address] [address] [place] [address] Care Team Providers Care Capacitor Inspector Name Role Phone Julieta De León Primary Care Provider [phone] Allergies No known active allergies Medications levETIRAcetam (Keppra) 500 MG tablet Take 2 tablets by mouth Once daily. 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 Chronic back pain 08/28/2022 Overview (08/28/2022): s/p fall from 14ft years ago Dental plaque 07/01/2022 Generalized gingival recession 07/01/2022 Dental caries 07/01/2022 Encounters Date Type Department Care Team Description 03/03/2024 Telephone [facility] [address] [place] [phone] Misty Kc [place] April recall 01/18/2024 9:45 AM EST Office Visit [facility] [address] [place] [phone] Julieta De León ANP Seizure disorder (CMS/HCC) (Primary Dx); Former smoker, stopped smoking in distant past; Screening for malignant neoplasm of colon; Encounter for immunization; Lipid screening; Elevated fasting glucose; Healthcare maintenance; Cervical adenopathy 01/18/2024 Travel 01/06/2024 Patient Outreach [facility] [address] [place] [address] Julieta De León ANP Pre-visit Planning (Pre-visit planning - LVM ) from Last 3 Months Immunizations Name Administration Dates Next Due DTaP, Unspecified 06/08/2011 Hep A / Hep B 08/16/2018 Influenza High-dose Quadriva lent Preservative Free 01/18/2023 Influenza injectable quadriv alent preservative free 02/09/2022,12/13/2020,11/02/2019,2018 Influenza, High Dose Seasona l, Preservative Free 01/18/2024 Influenza, IIV3, injectable 11/22/2017, 7 Influenza, Unspecified 12/30/2022 Influenza, seasonal, injecta ble, preservative free 11/22/2017,12/02/2016 Moderna Covid-19 Vaccine 6+ Bivalent 03/13/2022 Pfizer Covid-19 Vaccine 12+ 01/18/2024,0 08/30/2021,03/26/2021,2020,04/30/2020 Pfizer Covid-19 Vaccine 12+ cesia-sucrose (Oconnell Cap) 09/09/2021,03/26/2021 Pneumococcal Conjugate PCV 20 03/20/2022 Pneumococcal, Unspecified 06/08/2011 Td (adult), 5 Lf tetanus tox oid, preservative free, adsorbed 12/13/2020 Td (adult), unspecified 04/29/2006,07/28/2000 Zoster, Recombinant 08/08/2019,02/20/2019 Family History Medical History Relation Name Comments Heart disease Father Relation Name Status Comments Father Social History Tobacco Use Types Packs/Day Years Used Date Smoking Tobacco: Former Pipe Q uit: 1979 Cigars Quit: 1979 Smokeless Tobacco: Never Tobacco Cessation:Counseling Given: Not Answered Alcohol Use Standard Drinks/Week Comments Not Currently 0 (1 standard drink = 0.6 oz pur e alcohol) previously AUD Depression Answer Date Recorded Patient Health Questionnaire-9 Score 0 01/18/2024 Patient Health Questionnaire-9 Score 0 01/18/2024 Last PHQ-9: Questionnaire Data Not on file 1 03/19/2023 Housing Stability Answer Date Recorded What is your housing situation today? I have juan carlos henderson 12/30/[address] you li ve. Do you have problems with any of the following? None of the above 12/30/2022 Food Insecurity Answer Date Recorded Within the past 12 months, y ou worried that your food would run out before you got money to buy more: Never True 12/30/2022 Within the past 12 months,th e food you bought just didn't last and you didn't have enough money to get more: Never True 09/2022 Transportation Answer Date Recorded In the past 12 months, has l ack of transportation kept you from medical appts, meetings, work or from getting things needed for daily living? No 12/30/2022 Utilities Answer Date Recorded In the past 12 months, has t he Plynked, gas, oil or water company threatened to shut off services in your home? No 12/30/2022 Depression Answer Date Recorded Patient Health Questionnaire-2 Score 0 01/18/2024 Sex and Gender Information Value Date Recorded Sex Assigned at Male 12/22/2021 10:23 AM EDT Legal Sex Male 10:23 AM EDT Gender Identity Male 12/22/2021 10:23 AM EDT Sexual Orientation Straight 12/22/2021 10 :23 AM EDT Last Filed Vital Signs Vital Sign Reading Time Taken Comments Blood Pressure 124/78 01/18/2024 9:58 AM EST Pulse 71 01/18/2024 9:58 AM EST Temperature 36.9 ??C (98.4 ??F) 01/18/2024 9:58 AM ES T Respiratory Rate 14 01/18/2024 9:58 AM EST Oxygen Saturation 97% 01/18/2024 9:58 AM EST Inhaled Oxygen Concentration - - Weight 93.6 kg (206 lb 6.4 oz) 01/18/2024 9:58 A M EST Height 180.3 cm (5' 11 ) 01/18/2023 2:52 PM EST Body Mass Index 28.79 01/18/2023 2:52 PM EST Plan of Treatment Health Maintenance Due Date Last Done Comments Anal Pap 1957 CT Colonography 1957 Colonoscopy 1957 Colorectal Cancer Screening 1957 FIT DNA/Cologuard 1957 FIT 1957 FOBT 1957 Sigmoidoscopy 1957 Alcohol/Substance Use Screening 1969 Hepatitis A Vaccines (2 of 3 - Hep A Twinrix risk 3-dose series) 09/13/2018 08/16/2018 Hepatitis B Vaccines (2 of 3 - Hep B Twinrix risk 3-dose series) 09/13/2018 08/16/2018 Dental X-Ray: Bitewings 10/09/2022 10/08/2021 Dental Oral Exam 01/02/2023 07/01/2022 Dental Prophylaxis 01/02/2023 07/01/2022 SDOH Screening 08/29/2023 08/28/2022 Dental X-Ray: Full Mouth 10/09/2024 10/08/2021 Depression Screening 01/17/2025 01/18/2024, 01/18/20 Tobacco Screening 01/17/2025 01/18/2024 Lipid Panel 09/04/2027 09/03/2022 DTaP/Tdap/Td Vaccines (3 - Tdap) 12/13/2030 12/13/2020, 06/08/2011, 04/29/2006, Additional history exists RSV Patients and Patients Aged 60 years or older (1 - 1-dose 75+ series) 02/18/2032 Zoster Vaccines Completed 08/08/2019, 02/20/2019 Pneumococcal Vaccine: 50+ Years Completed 03/20/2022, 06/08/2011 Hepatitis C Screening Completed 09/03/2022 COVID-19 Vaccine Completed 01/18/2024, , 09/09/2021, Additional history exists Influenza Vaccine Completed 01/18/2024, , 01/18/2023, Additional history exists HIB Vaccines Aged Out No longer eligi ble based on patient's age to complete this topic HPV Vaccines Aged Out No longer eligi ble based on patient's age to complete this topic IPV Vaccines Aged Out No longer eligi ble based on patient's age to complete this topic Meningococcal Vaccine Aged Out No jonny mary eligible based on patient's age to complete this topic RSV under 20 months Aged Out No longe r eligible based on patient's age to complete this topic Rotavirus Vaccines Aged Out No longer eligible based on patient's age to complete this topic Procedures Procedure Name Priority Date/Time Associated Diagnosis Comments HEPATITIS C ANTIBODY REFLEX Routine 09/03/2022 1:20 PM EDT LIPID PANEL, STANDARD Routine 09/03/2022 1:20 PM EDT PROPHYLAXIS - ADULT Routine 07/01/2022 1 0:00 AM EDT Dental plaque PERIODIC ORAL EVALUATION - ESTABLISHED PATIENT Routine 07/01/2022 9:45 AM EDT from Last 3 Months or Most Recently Relevant to Health Maintenance Results * Hepatitis C Antibody Reflex (09/03/2022 1:20 PM EDT) Hepatitis C Antibody Nonreactive Nonreactive [facility] Comment:Antibodies to HCV no t detected; does not exclude early acuteHCV infection. 09/03/2022 1:20 PM EDT 09/03/2022 4:29 PM EDT [facility] External Provider LAB BLO OD ORDERABLES Final Result [facility] [address] [place] [phone] * Lipid Panel, Standard (09/03/2022 1:20 PM EDT) Triglycerides 39 mg/dL [facility] Comment:Desirable Triglyceri de: less than 150 mg/dLBorderline High Triglyceride 150-199 mg/dLHigh Triglyceride: 200-499 mg/dLVery High Triglyceride: greater than or equal to 5OO mg/dL Cholesterol 153 mg/dL [facility] Comment:Desirable Cholestero l: less than 200 mg/dLBorderline High Cholesterol: 200-239 mg/dLHigh Cholesterol: greater than 239 mg/dL LDL Cholesterol Calculated 101 mg/dl [facility] Comment:Desirable LDL: less than 100 mg/dLNear Optimal/Above Optimal LDL: 110- 129 mg/dLBorderline High LDL: 130-159 mg/dLHigh LDL: 160-189 mg/dLVery High LDL: greater than or equal to 190 mg/dL HDL Cholesterol 45 mg/dL [facility] Comment:Desirable HDL: great er than 40 mg/dL Note: This HDL assay may give artificially low results in patients with liver disease. 09/03/2022 1:20 PM EDT 09/03/2022 4:29 PM EDT [facility] External Provider LAB BLO OD ORDERABLES Final Result [facility] [address] [place] [address] [phone] from Last 3 Months or Most Recently Relevant to Health Maintenance Insurance [employer] MEDICARE REPLACEMENT [facility] Care Teams Capacitor Inspector Relationship Specialty Start Date End Date Julieta De León ANP [address] [place] [phone] PCP - General Family Medicine 08/28/22
--- OUTSIDE RECORDS SUMMARY | 2024-03-23 18:58 | XMS_ITS | Encounter Summary ---
Author Organization [employer] Address [address]t [place] [address] Care Team Providers Care Social And Human Services Assistant Name Role Phone Julieta De León Primary Care Provider [phone] Reason for Visit * Reason Onset Date Comments April recall 03/03/2024 Encounter Details Date Type Department Care Team (Late st Contact Info) Description 03/03/2024 Telephone [facility] [address] [place], [place] [phone] Misty Kc [place] April recall Social History Tobacco Use Types Packs/Day Years Used Date Smoking Tobacco: Former Pipe Q uit: 1979 Cigars Quit: 1979 Smokeless Tobacco: Never Alcohol Use Standard Drinks/Week Comments Not Currently [...] the past 12 months, has t he electric, gas, oil or water [employer] threatened to shut off services in your home? No 12/30/2022 Depression Answer Date Recorded Patient Health Questionnaire-2 Score 0 01/18/2024 Sex and Gender Information Value Date Recorded Sex Assigned at Male 12/22/2021 10:23 AM EDT Legal Sex Male 10:23 AM EDT Gender Identity Male 12/22/2021 10:23 AM EDT Sexual Orientation Straight 12/22/2021 10 :23 AM EDT documented as of this encounter Miscellaneous Notes * Telephone Encounter - Misty Kc MA - 03/03/2024 11:07 AM EST T/C to pt to schedule a recall tele f/u review US. PT stated that he got a call from [facility] to schedule US but he didn't because he have a new job. Pt stated he will call us back to schedule an appt wants he do the US. documented in this encounter Plan of Treatment Not on file documented as of this encounter Visit Diagnoses Not on filedocumented in this encounter Additional Health Concerns Assessment Noted Time PHQ-9 Depression Total Score: 0 01/18/20 24 11:23 AM EST documented as of this encounter Care Teams Social And Human Services Assistant Relationship Specialty Start Date End Date Julieta De León ANP [address] [place] [address] PCP - General Family Medicine 08/28/22 documented as of this encounter
--- OUTSIDE RECORDS SUMMARY | 2024-03-23 18:58 | XMS_ITS ---
Author Organization [facility] Address [address] [place] [address] Care Team Providers Care Administrative Support Manager Name Role Phone Jese Salmon Primary Care Provider Un available Frandy Chang Cain Unavailable [phone] ALLERGIES No Known Allergies REASON FOR VISIT Patient presents today for a SCREENING COLON MEDICATIONS Medication SIG (Take, Route, Fr equency, Duration) Notes Start Date End Date Status levETIRAcetam 500 MG 1 tablet Orally pasha ry 12 hrs for 30 day(s) Active IMMUNIZATIONS Vaccine Route Administration Date Status Comme nts Influenza Unknown 10/20/2023 Refused SOCIAL HISTORY Tobacco Use: Social History Observation Description Date Details (start date - stop date) Never Smoker NA - NA Sex Assigned At : Social History Observation Description Sex Assigned At Unknown Tobacco Use/Smoking Question Answer Notes Patient is a nonsmoker Alcohol Screen Question Answer Notes Did you have a drink containing alcohol in the p ast year? No Points 0 Interpretation Negative PROBLEMS Problem Type ICD Code Onset Dates Problem Status W/U Status Risk SNOMED Code Notes Problem Colon cancer screening (Z12.11) Active confirmed 279055726 Problem Pre-op evaluation (Z01.818) Active confirmed [id number] VITAL SIGNS BMI 26.88 kg/m2 10/20/2023 Blood pressure systolic 000 mm Hg 10/20/19 24 Blood pressure diastolic 00 mm Hg 024 Height 5 ft 12 in in 10/20/2023 Temperature 97.5 degrees Fahrenheit 10/20/19 24 Weight 198 lb 4 oz lbs 10/20/2023 Encounters Encounter Location Date Provider Diagnosis [facility] [address] [place] [address] 10/20/2023 Cain Wise Jr Colon cancer screening Z12.11 and Pre-op evaluation Z01.818 ASSESSMENTS Encounter Date Diagnosis Assessment Notes Treatment Notes Treatment Clinical Notes 10/20/2023 Colon cancer screening (ICD-10 - Z12.11) 10/20/2023 Pre-op evaluation (ICD-10 - Z01.818) Colon cancer screening material was printed PLAN OF TREATMENT Treatment Notes Assessment Notes Pre-op evaluation Colon cancer screeni ng material was printed Future Test Test Name Order Date COLONOSCOPY 10/20/2023 Next Appt Details Follow Up: 1 Year, Reason:
--- OUTSIDE RECORDS SUMMARY | 2024-03-23 18:58 | XMS_ITS ---
Author Organization [facility] Address [address] [place] [address] Care Team Providers Care Vacuum Truck Driver Name Role Phone Jese Salmon Primary Care Provider Un available Cain Wise Jr Unavailable [phone] REASON FOR VISIT screening Encounters Encounter Location Date Provider Diagnosis [facility] Outpatient [address] [place], [place] [id number] 12/03/2023 Cain Wise Jr Colon cancer screening Z12.11 and Colon polyps K63.5 ASSESSMENTS Encounter Date Diagnosis Assessment Notes Treatment Notes Treatment Clinical Notes 12/03/2023 Colon cancer screening (ICD-10 - Z12.11) 12/03/2023 Colon polyps (ICD-10 - K63.5) PLAN OF TREATMENT No Information
--- OUTSIDE RECORDS SUMMARY | 2024-03-23 18:58 | XMS_ITS | Encounter Summary ---
Author Name [facility] [facility] [place] [facility] [facility] [place] Address [address] [place] [address] Care Team Providers Care Commercial Census Taker Name Role Phone MARITZA SANCHEZ Primary Care Provider Unavail able Insurance Providers: All historical and current Section Date Range: From patient's date of to the date document was created. This section includes the names of all active insurance providers for the patient. Insurance Provider Type of Coverage Plan Name Start of Policy Coverage End of Policy Coverage Group Number Member ID Insurance Provider's Telephone Number Policy Armenta's Name Patient's Relationship to Policy Armenta [employer] MEDICARE ADVANTAGE MCR ([facility]) May 23, 2016 [id number] KEAGAN HUFF PATIENT [facility] ([facility]) MEDICARE ADVANTAGE MCR ([facility]) May 23, 2016 [id number] KEAGAN HUFF PATIENT MEDICAID MEDICAID [facility] Nov 23, 2011 MEDICAI D [id number] KEAGAN HUFF PATIENT Selected Encounter This section includes the information on record at [place] for the Encounter. Date/Time Encounter Type Encounter Description Reason Pro vider Source Mar 01, 2024 11:04 AM Outpatient Encounter OPTOMETRY IHE Encounter Template Text not used by [facility] Plan of Treatment: Future Appointments (+ 6 months) and Future Tests (+/- 45 days) The Plan of Treatment section includes future care activities for the patient from all [place] treatmentfacilities. This section includes future appointments and future orders which are active, pending or scheduled. Future Appointments This section includes appointments that were scheduled to occur 6 months from the date of the Encounter, up to a maximum of 20 appointments. The data comes from all [place] treatment facilities. Appointment Date/Time Appointment Type Appointme nt Facility Name Apr 25, 2024 10:30 AM AMBULATORY - [place]ICINE [place] [facility] [place] [facility] Social History: Smoking Status (Most current) and Tobacco Use (All prior to encounter date) This section includes the most current, and the historical, smoking and tobacco- related health factors from the [facility] facility where the Encounter took place. Current Smoking Status This section includes the most current smoking, or tobacco-related health factor, from the [place] facility where the Encounter took place. Date/Time Current Smoking Status Comment [facility] Apr 30, 2023 11:30 AM VA-TOBACCO NEVER USED [place] [facility] [place] [facility] Tobacco Use History This section includes a history of the smoking, or tobacco-related health factors, that were collected on or before the date of the Encounter. The data comes from the [place] facility where the Encounter took place. Date/Time Smoking Status/Tobac co Use Comment Facility Jan 08, 2022 08:48 AM [place]-TOBACCO NEVER USED [facility] [place] [facility] Dec 13, 2020 11:00 AM VA-TOBACCO NEVER USED [facility] [place] [facility] Aug 16, 2018 10:26 AM VA-TOBACCO FORMER USER [place] [facility] [place] [facility] Aug 16, 2018 10:26 AM VA-TOBACCO NEVER USED [facility] [place] [facility] Aug 16, 2018 10:26 AM VA-TOBACCO QUIT 15 YRS OR MORE [facility] [place] [facility] Nov 22, 2017 01:00 PM VA-TOBACCO FORMER USER [facility] [place] [facility] Nov 22, 2017 01:00 PM VA-TOBACCO QUIT 15 YRS OR MORE [facility] [place] [facility] Dec 02, 2016 11:26 AM QUIT TOBACCO USE > 7 YEARS AGO [facility] [place] [facility] Apr 16, 2016 02:08 PM QUIT TOBACCO USE 1-7 YEARS AGO [facility] [place] [facility] Feb 12, 2015 02:12 PM QUIT TOBACCO USE > 7 YEARS AGO [facility] Jul 31, 2003 09:38 AM [facility] Dec 22, 2001 03:25 PM [facility] Dec 22, 2001 03:25 PM LIFETIME [facility]ACCO [facility] Encounter Notes: All associated encounter notes This section contains the clinical notes associated to the Encounter. Date/Time Encounter Note(s) Provider Source Mar 01, 2024 11:04 AM TELEPHONE ENCOUNTE R NOTE: LOCAL TITLE: TELEPHONE NOTE/SPECIALTY CLINIC STANDARD TITLE: TELEPHONE ENCOUNTER NOTE DATE OF NOTE: MAR 01, 2024@11:04 ENTRY DATE: MAR 01, 2024@11:04:27 AUTHOR: SARAH MCGRATH EXP COSIGNER: URGENCY: STATUS: COMPLETED Called patient and LM to c/b and reschedule OPT/ appointment that was cancelled by clinic for 09/04/2024, original PID 09/04/2024. Letter mailed. /[place]/ SARAH MCGRATH ADVANCED FLIGHT TOWER DISPATCHER Signed: 03/01/2024 11:04 SARAH MCGRATH [facility]
--- OUTSIDE RECORDS SUMMARY | 2024-03-23 18:58 | XMS_ITS | Encounter Summary ---
Author Organization [employer] Address [address] [place] [address] Care Team Providers Care Press Assistant And Feeder Name Role Phone Julieta De León ANP Primary Care Provider [phone] Julieta De León ANP Primary Care Provider [phone] Encounter Details Date Type Department Care Team (Latest Contact Info) Description 10/14/2021 Abstract [facility] CONVERSIONS Dental, Provider, DDS Social History Tobacco Use Types Packs/Day Years Used Date Smoking Tobacco: Never Assessed Sex and Gender Information Value Date Recorded Sex Assigned at Male 12/22/2021 10:23 AM EDT Legal Sex Male 10:23 AM EDT Gender Identity Male 12/22/2021 10:23 AM EDT Sexual Orientation Straight 12/22/2021 10 :23 AM EDT documented as of this encounter Plan of Treatment Not on file documented as of this encounter Visit Diagnoses Not on filedocumented in this encounter Care Teams Press Assistant And Feeder Relationship Specialty Start Date End Date Julitea De León ANP [address] [place] [address] PCP - General Family Medicine 07/16/22 07/22/22 Julieta De León ANP [address] [place] [id number] PCP - General Family Medicine 08/28/22 documented as of this encounter
--- OUTSIDE RECORDS SUMMARY | 2024-03-23 18:58 | XMS_ITS | Patient Health Record ---
Author Organization [facility] Address [address] [place] [address] Care Team Providers Care Bulk Materials Handling Plant Operator Name Role Phone Jese Salmon Primary Care Provider Un available Cain Wise Jr Unavailable ALLERGIES No Known Allergies RESULTS Component Value Reference Range Notes Pathology Reviewed date:12/14/2023 03:20:06 PM Interpretation: Performing Lab:[facility], [address] [place] [id number] Notes/Report: REASON FOR REFERRAL Referring Provider First Name Jese Referring Provider Last Name Alexandria Referring Provider Speciality Internal M edicine Referred Organization [facility] Referred Provider Cain Wise Jr Referred Address [address] [place] [address] [address], [place],[address], Referred Provider Specialty Gastroentero logy General Notes Mary Casillas 024 12:51:51 PM EDT > faxed request to Sophia for a [facility] referral Referral Priority Routine MEDICATIONS Medication SIG (Take, Route, Fr equency, [...] Problem Colon cancer screening (Z12.11) Active confirmed 181859647 Problem Pre-op evaluation (Z01.818) Active confirmed [id number] VITAL SIGNS Temperature 97.5 degrees Fahrenheit 10/20/2023 Blood pressure diastolic 00 mm Hg 10/20/2023 Height 5 ft 12 in in 10/20/2023 Blood pressure systolic 000 mm Hg 10/20/2023 Weight 198 lb 4 oz lbs 10/20/2023 BMI 26.88 kg/m2 10/20/2023 Encounters Encounter Location Date Provider Diagnosis [facility] [place] [address] [place] [phone] 12/03/2023 Cain Wise Jr Colon cancer screening Z12.11 and Colon polyps K63.5 [facility] [address] [place] [phone] 10/06/2023 Cain Wise Jr [facility] [address] [place] [phone] 10/20/2023 Cain Wise Jr Colon cancer screening Z12.11 and Pre-op evaluation Z01.818 [facility] [address] [place] [phone] 12/14/2023 Cain Wise Jr ASSESSMENTS Encounter Date Diagnosis Assessment Notes Treatment Notes Treatment Clinical Notes 12/03/2023 Colon cancer screening (ICD-10 - Z12.11) 12/03/2023 Colon polyps (ICD-10 - K63.5) 10/20/2023 Colon cancer screening (ICD-10 - Z12.11) 10/20/2023 Pre-op evaluation (ICD-10 - Z01.818) Colon cancer screening material was printed PLAN OF TREATMENT Future Test Test Name Order Date COLONOSCOPY 10/20/2023 Insurance Providers Payer Name Payer Address Payer Phone Subscriber Number Group Number Insured Name Patient Relationship to Insured Coverage Start Date Coverage End Date [facility] [employer] [address] [place] [id number] KEAGAN HUFF Self - patient is the insured MEDICAL (GENERAL) HISTORY Medical History History ICD Code Seizure disorder History of substance abuse w ith marijuana and cocaine in the past, currently in remission. Colonoscopy 2013 Surgical History Surgery Date(Month/Year)
--- OUTSIDE RECORDS SUMMARY | 2024-03-23 18:58 | XMS_ITS | Encounter Summary ---
Author Organization [employer] Address [address] [facility] [facility] [address] [place] [id number] Care Team Providers Care Fish Peddler Name Role Phone Julieta De León ANP Primary Care Provider [phone] Julieta De León ANP Primary Care Provider [phone] Encounter Details Date Type Department Care Team (Latest Contact Info) Description 01/09/2019 Abstract [facility] CONVERSIONS Dental, Provider, DDS Social History [...] on filedocumented in this encounter Care Teams Fish Peddler Relationship Specialty Start Date End Date Julieta De León ANP [address] [place] [address] PCP - General Family Medicine 07/16/22 07/22/22 Julieta De León ANP [address] [place] [address] PCP - General Family Medicine 08/28/22 documented as of this encounter
--- OUTSIDE RECORDS SUMMARY | 2024-03-23 18:58 | XMS_ITS ---
Author Name [facility] [place] [facility] [place] Organization [facility] [place] Address [address] [place] [address] Care Team Providers Care Customer Resolution Specialist Name Role Phone JESE IBRAHIM Primary Care Provider Unavail able Insurance Providers: [...] [employer] MEDICARE ADVANTAGE MCR ([facility]) May 23, 2016 [id number] KEAGAN HUFF PATIENT [facility]) MEDICARE ADVANTAGE MCR ([facility]) May 23, 2016 [id number] KEAGAN HUFF PATIENT MEDICAID MEDICAID [facility] Nov 23, 2011 MEDICAI D [id number] KEAGAN HUFF PATIENT Selected Encounter This section includes the information on record at [place] for the Encounter. Date/Time Encounter Type Encounter Description Reason Provider Source Oct 28, 2023 11:00 AM OFFICE O/P EST LOW 20 MIN PRIMARY CARE/MEDICINE ICD-10-CM R56.1 Post traumatic seizures VANWAGNER,WILL MATIAS F IHE Encounter Template Text not used by [place] Assessments - Encounter Diagnoses This section includes the primary and secondary diagnoses documented for the Encounter. Date/Time Primary/Secondary Diagnosis Diagnosis Name Provider Source Oct 28, 2023 11:17 AM PRIMARY Post traumatic seizures VANWAGNER,WILL MATIAS F [facility] Oct 28, 2023 11:17 AM SECONDARY Traum subdr hem w LOC of unsp duration, subs VANWAGNER,WILL MATIAS F [facility] Plan of Treatment: Future Appointments (+ 6 months) and Future Tests (+/- 45 days) The Plan of Treatment section includes future care activities for the patient from all [place] treatmentfacilities. This section includes future appointments and future orders which are active, pending or scheduled. Future Appointments This section includes appointments that were scheduled to occur 6 months from the date of the Encounter, up to a maximum of 20 appointments. The data comes from all [place] treatment facilities. Appointment Date/Time Appointment Type Appointme nt Facility Name Apr 25, 2024 10:30 AM AMBULATORY - MEDICINE [facility] Vital Signs: All taken on the encounter date This section contains inpatient and outpatient Vital Signs collected on the date of the Encounter. Date/Time Temperature Pulse Blood Pressure Respiratory Rate SP02 Pain Height Weight Body Mass Index Source Oct 28, 2023 10:52 AM 97.7 48 122/72 16 96 0 202 28 [facility] Social History: Smoking Status (Most current) and Tobacco Use (All prior to encounter date) This section includes the most current, and the historical, smoking and tobacco- related health factors from the [place] facility where the Encounter took place. Current Smoking Status This section includes the most current smoking, or tobacco-related health factor, from the [place] facility where the Encounter took place. Date/Time Current Smoking Status Comment Segun milan Apr 30, 2023 11:30 AM [place]-TOBACCO NEVER USED [facility] Tobacco Use History This section includes a history of the smoking, or tobacco-related health factors, that were collected on or before the date of the Encounter. The data comes from the [place] facility where the Encounter took place. Date/Time Smoking Status/Tobac co Use Comment Facility Jan 08, 2022 08:48 AM [place]-TO[place] NEVER USED [facility] [place] [facility] Dec 13, 2020 11:00 AM VA-TOBACCO NEVER USED [facility] [place] [facility] Aug 16, 2018 10:26 AM VA-TOBACCO FORMER USER [facility] [place] [facility] Aug 16, 2018 10:26 AM VA-TOBACCO NEVER USED [facility] [place] [facility] Aug 16, 2018 10:26 AM VA-TOBACCO QUIT 15 YRS OR MORE [facility] [place] [facility] Nov 22, 2017 01:00 PM VA-TOBACCO FORMER USER [facility] [place] [facility] Nov 22, 2017 01:00 PM VA-TOBACCO QUIT 15 YRS OR MORE [facility] [place] [facility] Dec 02, 2016 11:26 AM QUIT TOBACCO USE > 7 YEARS AGO [facility] [place] [facility] Apr 16, 2016 02:08 PM QUIT TOBACCO USE 1-7 YEARS AGO [facility] [place] [facility] Feb 12, 2015 02:12 PM QUIT TOBACCO USE > 7 YEARS AGO smoked pipe and cigar quit in 1976 [place] [facility] [place] [facility] Jul 31, 2003 09:38 AM LIFETIME NON-SMOKER [place] [facility] [place] [facility] Dec 22, 2001 03:25 PM LIFETIME NON-SMOKER [facility] [place] [facility] Dec 22, 2001 03:25 PM LIFETIME NON-TOBACCO USER [place] [facility] [place] [facility] Encounter Notes: All associated encounter notes This section contains the clinical notes associated to the Encounter. Date/Time Encounter Note(s) Provider Source Oct 28, 2023 11:09 AM PHYSICIAN MERCURY PURIFIER NOTE: LOCAL TITLE: IVONNE NOTE STANDARD TITLE: PHYSICIAN MERCURY PURIFIER NOTE DATE OF NOTE: OCT 28, 2023@11:09 ENTRY DATE: OCT 28, 2023@11:09:59 AUTHOR: JESE IBRAHIM COSIGNER: URGENCY: STATUS: COMPLETED CC/HPI/A/P: 68 year old MALE here in follow-up for; seizure d/o, denies recent, seble Estevez Thiamine def, renew. Review of systems: Patient reports no changes from [place]ual [place], in meds or any admissions. Active problems - Computerized Problem List is the source for the followin. Posttraumatic seizure 2. Osteoarthritis of knee 3. SDH - Subdural hematoma 4. Traumatic rupture of biceps tendon partial tear right 5. Diverticulosis of cecum 6. Hypertriglyceridemia 7. Nonallopathic lesions of rib cage 8. Dyspnea * 9. Open Angle Glaucoma Suspect 10. 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 LUMBAGO SERVICE CONNECTED % - 10 VA and Non VA meds were reconciled with the patient who left with a corrected copy. See medication page for details. Active and Recently Outpatient Medications (excluding Supplies): Active Non-VA Medications Status 1) Non-VA THIAMINE 50MG TAB 50MG BY MOUTH ONCE DAILY ACTIVE 97.7 F [36.5 C] (10/28/2023 10:52) 48 (10/28/2023 10:52) 16 (10/28/2023 10:52) 122/72 (10/28/2023 10:52) 0 (10/28/2023 10:52) 71 in [180.3 cm] (06/15/2016 09:53) 202 lb [91.63 kg] (10/28/2023 10:52) BMI: 28.2 Neuro: Alert and oriented times three, grossly nonfocal, nasolabial folds intact. Thyroid nonpalpable. Cor: Regular rate and rhythm, normal s1 and 2 without Murmur, carotid bruits or pedal edema. Lungs; Clear to auscultation bilaterally. Recent labs reviewed with patient today: /[place]/ Jese Ibrahim PA-C STAFF PHYSICIAN MERCURY PURIFIER Signed: 10/28/2023 11:17 JESE IBRAHIM [place] [facility] [place] [facility] Oct 28, 2023 10:54 AM PREVENTIVE MEDICINE NURSING NOTE: LOCAL TITLE: CLINICAL REMINDERS/NURSING STANDARD TITLE: PREVENTIVE MEDICINE NURSING NOTE DATE OF NOTE: OCT 28, 2023@10:54 ENTRY DATE: OCT 28, 2023@10:54:45 AUTHOR: GENESIS SOLANO EXP COSIGNER: URGENCY: STATUS: COMPLETED Follow Up Colonoscopy: Colonoscopy is due based on information available to this reminder. A colonoscopy is currently scheduled or in process of being scheduled. Comment: DEC 01 [facility] // GENESIS SOLANO LPN Signed: 10/28/2023 10:55 LAUREN SOLANO [facility]
--- OUTSIDE RECORDS SUMMARY | 2024-03-23 18:59 | XMS_ITS ---
Author Name [facility] Organization [facility] [place] Address [address] [place] [id number] Care Team Providers Care Geoint Analyst Name Role Phone JESE IBRAHIM Primary Care [...] [employer] MEDICARE ADVANTAGE MCR ([facility]) May 23, 2016 [id number] [phone] [facility] MEDICARE ADVANTAGE MCR ([facility]) May 23, 2016 [id number] KEAGAN HUFF PATIENT MEDICAID MEDICAID [facility] Nov 23, 2011 MEDICAI D [id number] KEAGAN HUFF PATIENT Selected Encounter This section includes the information on record at [place] for the Encounter. Date/Time Encounter Type Encounter Description Reason Provider Source Apr 30, 2023 11:30 AM OFFICE O/P EST LOW 20 MIN PRIMARY CARE/MEDICINE ICD-10-CM R56.1 Post traumatic seizures VANWAGNER,WILL MATIAS F IHE Encounter Template Text not used by [place] Assessments - Encounter Diagnoses This section includes the primary and secondary diagnoses documented for the Encounter. Date/Time Primary/Secondary Diagnosis Diagnosis Name Provider Source Apr 30, 2023 12:10 PM PRIMARY Post traumatic seizures [place] IBRAHIM [facility] Plan of Treatment: Future Appointments (+ 6 months) and Future Tests (+/- 45 days) The Plan of Treatment section includes future care activities for the patient from all [place] [facility]. This section includes future appointments and future orders which are active, pending or scheduled. Future Appointments This section includes appointments that were scheduled to occur 6 months from the date of the Encounter, up to a maximum of 20 appointments. The data comes from all [place] treatment facilities. Appointment Date/Time Appointment Type Appointme nt Facility Name Oct 20, 2023 09:00 AM [facility]UL[facility] Oct 28, 2023 11:00 AM AMBULATORY - MEDICINE [facility] Vital Signs: All taken on the encounter date This section contains inpatient and outpatient Vital Signs collected on the date of the Encounter. Date/Time Temperature Pulse Blood Pressure Respiratory Rate SP02 Pain Height Weight Body Mass Index Source Apr 30, 2023 11:22 AM 97.1 48 118/64 18 97 0 195 [facility] Social History: Smoking Status (Most current) and Tobacco Use (All prior to encounter date) This section includes the most current, and the historical, smoking and tobacco- related health factors from the [place] facility where the Encounter took place. Current Smoking Status This section includes the most current smoking, or tobacco-related health factor, from the [place] facility where the Encounter took place. Date/Time Current Smoking Status Comment Segun tavares Apr 30, 2023 11:30 AM [place]-TOBACCO NEVER USED [facility] Tobacco Use History This section includes a history of the smoking, or tobacco-related health factors, that were collected on or before the date of the Encounter. The data comes from the [place] facility where the Encounter took place. Date/Time Smoking Status/Tobac co Use Comment Facility Jan 08, 2022 08:48 AM [place]-TOBACCO [facility]ED [facility] Dec 13, 2020 11:00 AM VA-TOBACCO NEVER USED [place] [facility] [place] [facility] Aug 16, 2018 10:26 AM VA-TOBACCO FORMER USER [facility] [place] [facility] Aug 16, 2018 10:26 AM VA-TOBACCO NEVER USED [facility] [place] [facility] Aug 16, 2018 10:26 AM VA-TOBACCO QUIT 15 YRS OR MORE [place] [facility] [place] [facility] Nov 22, 2017 01:00 PM VA-TOBACCO FORMER USER [facility] [place] [facility] Nov 22, 2017 01:00 PM VA-TOBACCO QUIT 15 YRS OR MORE [facility] [place] [facility] Dec 02, 2016 11:26 AM QUIT TOBACCO USE > 7 YEARS AGO [facility] [place] [facility] Apr 16, 2016 02:08 PM QUIT TOBACCO USE 1-7 YEARS AGO [facility] [place] [facility] Feb 12, 2015 02:12 PM QUIT TOBACCO USE > 7 YEARS AGO smoked pipe and cigar quit in 1976 [place] [facility] [place] [facility] Jul 31, 2003 09:38 AM LIFETIME NON-SMOKER [place] [facility] [place] [facility] Dec 22, 2001 03:25 PM LIFETIME NON-SMOKER [facility] [place] [facility] Dec 22, 2001 03:25 PM LIFETIME NON-TOBACCO USER [place] [facility] [place] [facility] Encounter Notes: All associated encounter notes This section contains the clinical notes associated to the Encounter. Date/Time Encounter Note(s) Provider Source Apr 30, 2023 12:00 PM PHYSICIAN PILING CUTTER NOTE: LOCAL TITLE: IVONNE NOTE STANDARD TITLE: PHYSICIAN PILING CUTTER NOTE DATE OF NOTE: APR 30, 2023@12:00 ENTRY DATE: APR 30, 2023@12:00:17 AUTHOR: JESE IBRAHIM COSIGNER: URGENCY: STATUS: COMPLETED CC/HPI/A/P: 68 year old MALE here in follow-up for; Seizures, none on Keppra. thiamine def, he will buy OTC due to copay. Review of systems: Patient reports no changes [...] and Recently Outpatient Medications (excluding Supplies): Active Outpatient Medications Status 1) LEVETIRACETAM 500MG TAB TAKE TWO TABLETS BY MOUTH ACTIVE ONCE DAILY Active Non-VA Medications Status 1) Non-VA THIAMINE 50MG TAB 50MG BY MOUTH ONCE DAILY ACTIVE 2 Total Medications 97.1 F [36.2 C] (04/30/2023 11:22) 48 (04/30/2023 11:22) 18 (04/30/2023 11:22) 118/64 (04/30/2023 11:22) 0 (04/30/2023 11:22) 71 in [180.3 cm] (06/15/2016 09:53) 195 lb [88.45 kg] (04/30/2023 11:22) BMI: 27.3 Neuro: Alert and oriented times three, grossly nonfocal, nasolabial folds intact. Recent labs reviewed with patient today: yes Follow Up Colonoscopy: Colonoscopy is due based on information available to this reminder. Colonoscopy consult has been ordered. See orders tab for details. RHS Screen: RHS Screen Environmental Check Upon inquiry, the individual reports that the environment is safe to proceed. Informed Consent to Screen and Document The individual consents to proceed with screening. The individual consents to documentation of responses. PRIMARY SCREEN: In the past 12 months, how often did a current or former intimate partner (e.g., boyfriend, girlfriend, , , sexual partner): 1. Scream or curse at you Never 2. Insult or talk down to you Never 3. Threaten you with harm Never 4. Physically hurt you Never 5. Force or pressure you to have sexual contact against your will, or when you were unable to say no Never ?? The HITS tool (items 1-4 above) is [place] copyright protected by Himanshu Aleman MD, and the user has full rights to use it throughout the [place] system. PRIMARY SCREEN RESULT: The Primary Screen is NEGATIVE. The individual answered never to all forms of IPV above (i.e., answered never to all 5 items) The individual accepts education and/or resources: Other: EDUCATION: Other: /phoenix/ Jese Ibrahim PA-C STAFF PHYSICIAN PILING CUTTER Signed: 04/30/2023 12:10 JESE IBRAHIM [place] [facility] [place] [facility] Apr 30, 2023 11:23 AM PREVENTIVE MEDICINE NURSING NOTE: LOCAL TITLE: CLINICAL REMINDERS/NURSING STANDARD TITLE: PREVENTIVE MEDICINE NURSING NOTE DATE OF NOTE: APR 30, 2023@11:23 ENTRY DATE: APR 30, 2023@11:23:11 AUTHOR: GENESIS SOLANOIGNER: URGENCY: STATUS: COMPLETED Suicide Screen: C-SSRS Screening Warrior Suicide Severity Rating Scale (C-SSRS) screener 1. Over the past month, have you wished you were or wished you could go to sleep and not wake up? No 2. Over the past month, have you had any actual thoughts of killing yourself? No 3. Over the past month, have you been thinking about how you might do this? Response not required due to responses to other questions. 4. Over the past month, have you had these thoughts and had some intention of acting on them? Response not required due to responses to other questions. 5. Over the past month, have you started to work out or worked out the details of how to kill yourself? Response not required due to responses to other questions. 6. If yes, at any time in the past month did you intend to carry out this plan? Response not required due to responses to other questions. 7. In your lifetime, have you ever done anything, started to do anything, or prepared to do anything to end your life (for example, collected pills, obtained a gun, gave away valuables, went to the roof but didn't jump)? No 8. If YES, was this within the past 3 months? Response not required due to responses to other questions. Homelessness/Food Insecurity Screen: In the past 2 months, have you been living in stable housing that you own, rent, or stay in as part of a household? Yes - Living in stable housing. Are you worried or concerned that in the next 2 months you may NOT have stable housing that you own, rent, or stay in as part of a household? No - Not worried about housing near future The reports the following: Within the past 12 months, you worried whether your food would run out before you got money to buy more. Never true Within the past 12 months, the food you bought just didn't last and you didn't have money to get more. Never true Depression Screening: Perform PHQ-2 A PHQ-2 screen was performed. The score was 0 which is a negative screen for depression. Over the past two weeks, how often have you been bothered by the following problems? 1. Little interest or pleasure in doing things Not at all 2. Feeling down, depressed, or hopeless Not at all Tobacco Use Screening: The patient has never used tobacco. Influenza Immunization: The patient has received the seasonal influenza vaccine for the current season at another location. Documented: INFLUENZA, UNSPECIFIED FORMULATION Historical Date Administered: Dec 30, 2022 Series: Booster Outside Location: Outside Healthcare Provider Information Source: FROM OTHER PROVIDER Alcohol Use Screen (AUDIT-C): Alcohol Screen: SCREEN FOR ALCOHOL (AUDIT-C) An alcohol screening test (AUDIT-C) was negative (score=0). 1. How often did you have a drink containing alcohol in the past year? Consider a drink to be a 12 ounce can or bottle of regular beer, 8 ounces of malt liquor, a 5 ounce glass of table wine, or a 1.5 ounce shot of liquor (like scotch, gin, or vodka). Never 2. How many drinks containing alcohol did you have on a typical day when you were drinking in the past year? Response not required due to responses to other questions. 3. How often did you have six or more drinks on one occasion in the past year? Response not required due to responses to other questions. /phoenix/ GENESIS SOLANO LPN Signed: 04/30/2023 11:25 LAUREN SOLANO [facility]
--- OUTSIDE RECORDS SUMMARY | 2024-03-23 18:59 | XMS_ITS | Encounter Summary ---
Author Organization [employer] Address [address] [place] [address] Care Team Providers Care Art Museum Docent Name Role Phone De León Julieta ANP Primary Care Provider [phone] Julieta De León ANP Primary Care Provider [phone] Reason for Visit * Reason Onset Date Comments New patient Appt 07/14/2022 Encounter Details Date Type Department Care Team ([facility] Contact Info) Description 07/14/2022 Telephone [facility] MEDICINE [address] [place] [address] Iván Villeda MD [address] [place] [address] New patient Appt Social History Tobacco Use Types Packs/Day Years Used Date Smoking Tobacco: Never Smokeless Tobacco: Never Alcohol Use Standard Drinks/Week Comments Not Currently 0 (1 standard drink = 0.6 oz pur e alcohol) Sex and Gender Information Value Date Recorded Sex Assigned at Male 12/22/2021 10:23 AM EDT Legal Sex Male 10:23 AM EDT Gender Identity Male 12/22/2021 10:23 AM EDT Sexual Orientation Straight 12/22/2021 10 :23 AM EDT COVID-19 Exposure Response Date Recorded In the last 10 days, have yo u been in contact with someone who was confirmed or suspected to have Coronavirus/COVID-19? No / Unsure 07/01/2022 10:00 AM EDT documented as of this encounter Miscellaneous Notes * Telephone Encounter - Tia Yuen - 07/16/2022 2:54 PM EDT PAR Tia Robles called pt to Offer NIB ASSEMBLER appt. Pt demographics and insurance information were verified. Pt reports previous care at [facility]. Pt reports the following medical conditions: Seizures, Back Problems. Pt currently takes medication (pt did not mentioned which). Pt given NIB ASSEMBLER appt with on 08/28/2022 with PCP NIB ASSEMBLER Julieta De León. Pt will be sent appt reminder card and medical release form and agrees to complete and to return to medical records prior to NIB ASSEMBLER appt. * Telephone Encounter - Tia Yuen - 07/14/2022 1:06 PM EDT New Patients Par Tia Robles called to schedule New patient appt, pt did not answer left voicemail to give a call at [phone]. documented in this encounter Plan of Treatment Not on file documented as of this encounter Visit Diagnoses Not on filedocumented in this encounter Care Teams Art Museum Docent Relationship Specialty Start Date End Date Julieta De León ANP [address] [place] [phone] PCP - General Family Medicine 07/16/22 07/22/22 Julieta De León ANP [address] [place] [phone] PCP - General Family Medicine 08/28/22 documented as of this encounter
--- OUTSIDE RECORDS SUMMARY | 2024-03-23 18:59 | XMS_ITS ---
Author Organization [facility] Address [address] [place] [address] Care Team Providers Care Field Marketing Specialist Name Role Phone Jese Salmon Primary Care Provider Un available Cain Wise Jr Unavailable REASON FOR VISIT pathology Encounters Encounter Location Date Provider Diagnosis [facility] [address] [place] [address] 12/14/2023 Cain Wise Jr PLAN OF TREATMENT No Information
== END 2024-03-23 15:11 | disposition home or self-care (01) ==
LOC: HO.US 15:10
PROVIDERS: PCP Physician Assistant; Visit Provider Nurse Practitioner Primary Care
DX: R59.0 Localized enlarged lymph nodes (principal)
CPT/HCPCS: 76536

== ENCOUNTER → 2024-03-23 15:29 | Outpatient (BNV) | payer MEDICARE, SELFPAY | PROVIDERS: PCP Physician Assistant; Visit Provider Radiology Vascular & Interventional Radiology | DX: R59.0 Localized enlarged lymph nodes (principal) | CPT/HCPCS: 76536 ==